=== PATIENT | male | born 1975 | race Caucasian/White ===

== ENCOUNTER 2025-04-09 18:04 | Emergency (ER) | payer OTHER, SELFPAY ==
[2025-04-09] VITALS (8 sets, daily range): BP systolic 133–144; BP diastolic 74–96; PULSE 91–100; RESP 18–103; TEMP 36.4–36.6; O2SAT 96–99
--- NOTE | ~2025-04-09 | XR_ITS ---
XR chest 2V Ordering provider: Jerald Cristobal III DO History: 50 years Male with . chest tightness . Comparison: None. FINDINGS: MEDIASTINUM: The cardiac silhouette is not enlarged. LUNGS: No infiltrates, effusions or pneumothorax. OTHER: No free air under the diaphragm. IMPRESSION: No acute cardiopulmonary pathology. Reviewed, dictated and finalized at location A.
--- NOTE | 2025-04-09 18:11 | ECG_ITS ---
Test Date: 2025-04-09 18:19:13 Measurements Intervals [place] Rate: 95 P: 65 FL: 156 QRS: 65 QRSD: 96 T: 46 QT: 342 QTc: 431 Interpretive Statements SINUS RHYTHM No previous ECG available for comparison Electronically Signed On 04-09-2025 18:35:40 CDT by Janiya Lentz
--- NOTE | 2025-04-09 18:24 | ED.SOB ---
HPI - SOB/Dyspnea General Chief Complaint: Shortness of Breath/Dyspnea Stated Complaint: I need some air Time Seen by Provider: 04/09/25 18:14 Source: patient Mode of arrival: ambulatory Limitations: no limitations History of Present Illness HPI Narrative: Patient is a 50 y/o male who presents to the ED with c/o shortness of breath. Patient is currently residing at [facility] for inpatient detox. History of methamphetamine use, IV drug use. He reports he has been feeling increasingly short of breath with chest tightness over the past 2-3 days. He states he typically uses a rescue inhaler, but has not had access to this since being at [facility]. States he has been asking for it over the past couple of days, but has not been given it. Became very upset today and walked out of the facility and to here. Denies significant cough, congestion, sore throat, rhinorrhea, fevers, pain or swelling in legs. Related Data Allergies Allergy/AdvReac Type Severity Reaction Status Date / Time No Known Allergies Allergy Verified 04/09/25 18:05 Review of Systems Review of Systems: All systems reviewed & are unremarkable except as noted in HPI. All systems reviewed & are unremarkable except as noted in HPI and below PMFSH Social History Social History (Updated 04/09/25 @ 22:52 by Nikole Mercado PA-C) Substance use: former Substance use type: IV drugs and methamphetamine Exam Narrative: GENERAL: Mildly anxious appearing, well-nourished, non-toxic, in no acute distress. HEAD: Normocephalic, atraumatic. RESPIRATORY: Airway patent, respirations nonlabored. Clear to auscultation bilaterally, no rales, rhonchi, wheezing. No significant focal lung sounds. CARDIOVASCULAR: Regular rate and rhythm without murmurs, rubs, or gallops. MUSCULOSKELETAL: Moves all extremities. No gross deformities. No peripheral edema. No calf tenderness. SKIN: Warm, dry, normal color. NEURO: A&O X3. Speech clear. Cranial nerves II-XII grossly intact. Steady gait. No ataxic movements. PSYCHIATRIC: Intermittently tearful, labile mood. Normal interaction. Course Vital Signs Vital signs: Vital Signs Temperature 97.9 F 04/09/25 18:11 Pulse Rate 100 04/09/25 18:11 Respiratory Rate 24 H 04/09/25 18:11 Blood Pressure 144/96 H 04/09/25 18:11 Pulse Oximetry 98 04/09/25 18:11 Oxygen Delivery Room Air 04/09/25 18:11 Temperature 97.6 F 04/09/25 22:22 Pulse Rate 95 04/09/25 22:22 Respiratory Rate 18 04/09/25 22:22 Blood Pressure 133/96 H 04/09/25 22:22 Pulse Oximetry 98 04/09/25 22:22 Oxygen Delivery Room Air 04/09/25 18:14 MDM - SOB/Dyspnea MDM Narrative Medical decision making narrative: Patient presented to ED with 2-3 day hx of sob, chest tightness. Had been residing at [facility] however patient reportedly became irate today with staff and caused a scene before walking out of the building. ED nurse contacted [facility] and was advised that patient is not to return to the facility. Patient was updated on this and voiced understanding w/o issue. Vital signs are stable upon arrival. Patient is mildly anxious appearing, in no acute distress. EKG without ischemic changes. Baseline troponin undetectable. Chest x-ray is clear. D-dimer is within normal limits. Basic laboratory studies are otherwise unremarkable. No leukocytosis. Patient is denying any infectious type symptoms to suggest viral etiology. HEART score =2 based on age/smoking hx. 3 hour troponin also undetectable. Patient reports feeling slightly improved after nebulizer treatment. Low suspicion for ACS at this time. Feel patient is safe for discharge home with close outpatient follow-up. Recommended he follow-up with primary care doctor for further evaluation. Given return precautions. Patient in agreement with plan. Discharged in stable condition. Vital signs stable at time of D/C. Patient reports he does have a home that he can return to. Will be calling someone for ride. Denies SI or HI. Medical Records Attestation: I reviewed the patient's medical records. Lab Data Attestation: I reviewed the patient's lab results. 04/09/25 18:22 04/09/25 18:22 Labs: Lab Results 04/09/25 04/09/25 Range/Units 18:22 21:22 WBC 7.4 (4.5-10.0) K/mm3 RBC 4.28 L (4.6-6.20) M/mm3 Hgb 12.5 L (14.0-18.0) g/dL Hct 39.1 L (42.0-52.0) % MCV 91.4 (80-100) fl MCH 29.2 (26-34) pg MCHC 32.0 (32-36) g/dl RDW 14.4 (11.5-14.5) % Plt Count 263 (150-375) k/mm3 MPV 9.2 (7.4-10.4) fl Immature Gran % (Auto) 0.4 (0-0.5) % Neut % (Auto) 48.7 (45.5-73.1) % Lymph % (Auto) 35.0 (18.3-44.2) % [place] % (Auto) 11.4 H (2.6-8.5) % Eos % (Auto) 3.5 (0-4.4) % Baso % (Auto) 1.0 (0.2-1.2) % Lymph # (Auto) 2.57 (0.9-3.2) K/mm3 [place] # (Auto) 0.8 H (0.1-0.6) K/mm3 Eos # (Auto) 0.3 (0-0.3) K/mm3 Baso # (Auto) 0.1 (0.0-0.1) K/mm3 Abs Immat Gran (auto) 0.03 (0.00-0.031) K/mm3 Absolute Neuts (auto) 3.6 (1.3-6.7) K/mm3 Absolute Nucleated RBC 0.000 (0.0-0.012) K/mm3 Nucleated RBC % 0.0 (0.0-0.2) % PT 11.8 (11.1-14.7) Seconds INR 0.8 APTT 23.8 (22.3-36.8) Seconds D-Dimer 0.42 (<0.48) ug/mL Sodium 136 L (137-145) mmol/L Potassium 4.2 (3.4-5.0) mmol/L Chloride 99 (98-107) mmol/L Carbon Dioxide 29 (22-30) mmol/L Anion Gap 8 (4-12) mmol/L BUN 16 (9-20) mg/dL Creatinine 0.85 (0.7-1.3) mg/dL Estim Creat Clear Calc Not Reportable Estimated GFR > 60 (59 - ) Glucose 115 H (65-110) mg/dL Calcium 9.0 (8.4-10.2) mg/dL Total Bilirubin 0.4 (0.2-1.3) mg/dL AST 41 (17-59) U/L ALT 60 H (6-50) U/L Alkaline Phosphatase 90 (38-126) U/L Troponin I < 0.012 < 0.012 (0.000-0.034) ng/mL Total Protein 7.0 (6.3-8.2) g/dL Albumin 4.2 (3.5-5.1) g/dL Lipase 127 (23-300) U/L Imaging Data Attestation: I personally reviewed and interpreted this imaging study as follows: Radiologist's impression: ITS Impressions Chest X-Ray 04/09/25 18:51 IMPRESSION: No acute cardiopulmonary pathology. ECG Data EKG #1: Attestation: I personally reviewed and interpreted this ECG as follows: ECG completion date: 04/09/25 ECG completion time: 18:19 EKG Interpretation: normal rate (95), sinus rhythm and non-specific ST changes Discharge Plan Discharge Clinical Impression: Atypical chest pain, Chest tightness Patient Disposition: Home Condition: Stable Instructions: Antibiotic Form, Chest Pain (ED), Shortness of Breath (ED) Additional Instructions: Your workup here was reassuring. Utilize inhaler as needed for further shortness of breath. Stay well hydrated. Follow-up with your primary care doctor for further evaluation. Return to an ED if you experience worsening or severe symptoms, difficulty breathing, worsening chest pain, unable to keep down food or drink, pain or swelling in your legs, coughing blood, persistent fevers, or any other symptoms of concern. Patient Language: Divehi Prescriptions: New albuterol sulfate 90 mcg/actuation HFA aerosol inhaler 2 puff inhalation QID PRN (Reason: shortness of breath or wheezing) Qty: 6.7 0RF Follow-up/Referrals: PHYSICIAN,PUPPET ENGINEER [Non-Staff] - Sukhi Boudreaux MD [Physician] - (PRIMARY CARE) Time of Disposition: 21:58 Quality HEART score for chest pain patients History: slightly suspicious ECG: normal Age: > 45 and < 65 years Risk factors: 1 or 2 risk factors Troponin: < or = to 1x normal limit Heart score: 2
[2025-04-09 18:30] LABS: Basophils Absolute Auto 0.1 K/mm3 (0.0-0.1); Eosinophils Absolute Auto 0.3 K/mm3 (0-0.3); Eosinophils Percent Auto 3.5 % (0-4.4); Hematocrit 39.1 % (42.0-52.0); Hemoglobin 12.5 g/dL (14.0-18.0); Immature Granulocyte Absolute 0.03 K/mm3 (0.00-0.031); Immature Granulocyte Percent A 0.4 % (0-0.5); Lymphocytes Absolute Auto 2.57 K/mm3 (0.9-3.2); Mean Corpuscular Hemoglobin 29.2 pg (26-34); Mean Corpuscular Volume 91.4 fl (80-100); Mean Platelet Volume 9.2 fl (7.4-10.4); Monocytes Absolute Auto 0.8 K/mm3 (0.1-0.6); Monocytes Percent Auto 11.4 % (2.6-8.5); Neutrophils Absolute Auto 3.6 K/mm3 (1.3-6.7); Neutrophils Percent Auto 48.7 % (45.5-73.1); Platelet Count Result 263 k/mm3 (150-375); Red Blood Count 4.28 M/mm3 (4.6-6.20); Red Cell Distribution Width 14.4 % (11.5-14.5); White Blood Count 7.4 K/mm3 (4.5-10.0)
--- NOTE | 2025-04-09 18:41 | PC.NURSE ---
Per [facility], the patient has been discharged from their facility. Patient is not allowed to return due to him yelling and disrespecting staff.
[2025-04-09 18:43] LABS: Alanine Aminotransferase 60 U/L (6-50); Albumin Level 4.2 g/dL (3.5-5.1); Alkaline Phosphatase 90 U/L (38-126); Anion Gap 8 mmol/L (4-12); Aspartate Amino Transferase 41 U/L (17-59); Bilirubin,Total 0.4 mg/dL (0.2-1.3); Blood Urea Nitrogen 16 mg/dL (9-20); Carbon Dioxide 29 mmol/L (22-30); Chloride 99 mmol/L (98-107); Estimated Glomerular Filt Rate > 60; Glucose 115 mg/dL (65-110); Lipase 127 U/L (23-300); Potassium 4.2 mmol/L (3.4-5.0); Sodium 136 mmol/L (137-145)
--- OUTSIDE RECORDS SUMMARY | 2025-04-09 18:49 | XMS_ITS | Clinical Summary ---
Author Organization [facility] Address [address] [place] [address] Care Team Providers Care General Pediatrician Name Role Phone Omer Roa MD Primary Care Provider [phone] Source Comments [facility],non-owned Affiliates and Associated Physician Practices is amultiple site organization consisting of ambulatory clinics and hospital sitesin [place], [place], [place]. This disclosure is being madepursuant to the Care Everywhere program and may not contain all information available regarding this patient. Last updated 18.[employer] [facility] Allergies No known active allergies Medications * This document contains information received from the source organization and may not represent a complete record from that organization. * Be aware that medications may not be up to date on this document. Alwaysverify current medications with the patient. amLODIPine (Norvasc) 5 MG tabletIndication s:Hypertension Take 1 (one) tablet by mouth once daily for 30 days Reasons: High Blood Pressure 30 tablet 5 Active escitalopram (Lexapro) 10 MG tabletIndication s:Major Depressive Disorder Take 1 (one) tablet by mouth once daily for 30 days Reasons: Major Depressive Disorder 30 tablet 5 Active traZODone (Desyrel) 50 MG tabletIndication s:Insomnia,Major Depressive Disorder Take 1 (one) tablet by mouth nightly as needed for Insomnia Reasons: Major Depressive Disorder, Trouble Sleeping 30 tablet 5 Active umeclidinium (Incruse Ellipta) 62.5 MCG/ACT inhalerIndicatio ns:Chronic Obstructive Pulmonary Disease Inhale 1 (one) puff by mouth once daily for 30 days Reasons: Chronic Obstructive Lung Disease 1 Each 5 Active Active Problems Problem Noted Date Diagnosed Date Unspecified mood (affective) disorder 01/04/2025 Tobacco use disorder 12/05/2024 Depression, unspecified depression type 12/04/19 25 Syncope and collapse 09/07/2024 Methamphetamine use disorder, severe 09/07/2024 Acute exacerbation of chronic obstructive pulmon gabby disease 07/07/2024 Generalized anxiety disorder 03/13/2024 Essential hypertension 03/13/2024 Mixed hyperlipidemia 03/13/2024 Allergic bronchitis 10/13/2023 Acute encephalopathy 08/30/2023 Closed fracture of left iliac wing 05/13/2020 Encounters * This document contains information received from the source organization and may not represent a complete record from that organization. Date Type Department Care Team Description 03/25/2025 Travel 02/27/2025 Travel 01/28/2025 2:05 PM EDUCATIONAL SPECIALIST - 01/28/2025 6:15 PM EDUCATIONAL SPECIALIST [place] [address] Christy Howell MD Near syncope; Hallucinations; Methamphetamine abuse Discharge Disposition: Home or Self Care 01/28/2025 Travel 01/27/2025 Travel from Last 3 Months Immunizations Immunization Administration Dates Next Due Zodio primary monovalent 12+ yr 0.3mL Pur ple cap 12/01/2021 INFLUENZA VACCINE, TRIV. ([place] UZONE; FLULAVAL; FLUARIX; AFLURIA TRIVALENT; 6MO+), 0.5 ML (IIV3) 12/06/2024 TDAP (7yrs+) 07/06/2010 Family History Medical History Relation Name Comments Cancer - Lung Mother Relation Name Status Comments Mother Social History Tobacco Use Types Packs/Day Years Used Date Smoking Tobacco: Every Day Cigarettes Smokeless Tobacco: Never Tobacco Cessation:Ready to Q uit: Not Asked; Counseling Given: Not Answered Alcohol Use Standard Drinks/Week Comments Yes 0 (1 standard drink = 0.6 oz pure alcohol) , relapsed 12/03/2024, only a few drinks a couple of times AUDIT-C Answer Date Recorded Q1: How often do you have a drink containing alc ohol? Monthly or less 03/25/2025 Q2: How many drinks containi ng alcohol do you have on a typical day when you are drinking? 1 or 2 03/25/2025 Q3: How often do you have si x or more drinks on one occasion? Never 03/25/2025 Overall Financial Resource Strain (CARDIA) Answe r Date Recorded How hard is it for you to pa y for the very basics like food, housing, medical care, and heating? Very hard 01/04/2025 PHQ-2 Answer Date Recorded Patient Health Questionnaire-2 Score 3 03/25/2025 [facility] - Occupational Stress Questionnaire Answer Date Recorded Do you feel stress - tense, restless, nervous, or anxious, or unable to sleep at night because your mind is troubled all the time - these days? Very much 01/04/2025 Hunger Vital Sign Answer Date Recorded Within the past 12 months, y ou worried that your food would run out before you got the money to buy more. Often true 01/04/20 25 Within the past 12 months, t he food you bought just didn't last and you didn't have money to get more. Often true 01/04/2025 PRAPARE - Transportation Answer Date Re corded In the past 12 months, has l ack of transportation kept you from medical appointments or from getting medications? Yes 06/2025 In the past 12 months, has l ack of transportation kept you from meetings, work, or from getting things needed for daily living? Yes 01/04/2025 Housing Stability Vital Sign Answer Alhaji e Recorded In the last 12 months, was t here a time when you were not able to pay the mortgage or rent on time? Yes 01/04/2025 In the past 12 months, how m any times have you moved where you were living? 1 01/04/2025 At any time in the past 12 m [facility], were you homeless or living in a [place] health care facility (including now)? Yes 01/04/2025 Sex and Gender Information Value Date Recorded Sex Assigned at Not on file Legal Sex Male 6:16 PM EDUCATIONAL SPECIALIST Gender Identity Not on file Sexual Orientation Not on file Last Filed Vital Signs Vital Sign Reading Time Taken Comments Blood Pressure 157/100 01/28/2025 6:13 PM EDUCATIONAL SPECIALIST Pulse 100 01/28/2025 6:13 PM EDUCATIONAL SPECIALIST Temperature 36.8 C (98.3 F) 01/28/2025 1:47 PM EDUCATIONAL SPECIALIST Respiratory Rate 17 01/28/2025 6:13 PM EDUCATIONAL SPECIALIST Oxygen Saturation 100% 01/28/2025 6:13 PM EDUCATIONAL SPECIALIST Inhaled Oxygen Concentration 21% 10/28/2024 7 :07 AM EDUCATIONAL SPECIALIST Weight 75.3 kg (166 lb) 01/28/2025 1:47 PM EDUCATIONAL SPECIALIST Height 180.3 cm (5' 11 ) 01/28/2025 1:47 PM EDUCATIONAL SPECIALIST Body Mass Index 23.15 01/28/2025 1:47 PM EDUCATIONAL SPECIALIST Plan of Treatment Health Maintenance Due Date Last Done Comments COLOGUARD (AGES 45-75) - COL ON CA SCREENING 1974 COLON MONITORING 1974 COLONOSCOPY - COLON CA SCREENING 1974 CT COLONOGRAPHY - COLON CA SCREENING 1974 Colorectal Cancer Screening 1974 FIT - COLON CA SCREENING 1974 FLEX SIG - COLON CA SCREENING 1974 LIPID TESTING 1974 HEPATITIS B VACCINE (1 of 3 - 19+ 3-dose series) 1993 PNEUMOCOCCAL VACCINE 50+ (1 of 2 - PCV) 1993 DTAP/TDAP/TD VACCINES (2 - T d or Tdap) 07/06/2020 07/06/2010 ZOSTER VACCINE (1 of 2) 2024 COVID-19 VACCINE (2 - 2023-2 5 season) 2024 12/01/2021 HEPATITIS C SCREENING Completed 12/16/2022 , 09/14/2019 HIV SCREENING Completed 05/27/2024, 09/14/2019 INFLUENZA VACCINE Completed 12/06/2024 DEPRESSION SCREENING Completed 01/28/2025, 12/16/2022 HIB VACCINE Aged Out No longer eligi ble based on patient's age to complete this topic HPV VACCINE Aged Out No longer eligi ble based on patient's age to complete this topic MENINGOCOCCAL (Group B) VACCINE SHARED DECISION-MAKING Aged Out No longer eligible based on patient's age to complete this topic MENINGOCOCCAL GROUPS A/C/Y/W VACCINE Aged Out No longer eligible b ased on patient's age to complete this topic Procedures Procedure Name Priority Date/Time Associated Diagnosis Comments CARDIAC EKG ORDER 01/30/2025 2:[address] HEAD WO CONTRAST STAT 01/28/2025 2 :32 PM EDUCATIONAL SPECIALIST Near syncope DRUG ABUSE URINE SCREEN 10 STAT 01/28/2025 2:17 PM EDUCATIONAL SPECIALIST URINALYSIS REFLEX TO MICROSCOPIC NO CULTURE STAT 01/28/2025 2:17 PM EDUCATIONAL SPECIALIST CK BLOOD STAT 01/28/2025 2:14 PM EDUCATIONAL SPECIALIST ALCOHOL ETHYL BLOOD STAT 01/28/2025 2 :14 PM EDUCATIONAL SPECIALIST TROPONIN-I HIGH SENSITIVE STAT 01/28/2025 2:14 PM EDUCATIONAL SPECIALIST PT-INR STAT 01/28/2025 2:14 PM EDUCATIONAL SPECIALIST MAGNESIUM BLOOD STAT 01/28/2025 2:14 PM EDUCATIONAL SPECIALIST COMPREHENSIVE METABOLIC PANEL STAT 01/28/2025 2:14 PM EDUCATIONAL SPECIALIST CBC W AUTO DIFFERENTIAL STAT 01/28/2025 2:14 PM EDUCATIONAL SPECIALIST TSH REFLEX FREE T4 STAT 01/28/2025 2: 14 PM EDUCATIONAL SPECIALIST XR CHEST 1VW PORTABLE STAT 01/28/2025 2:13 PM EDUCATIONAL SPECIALIST Near syncope EKG 12-LEAD STAT 01/28/2025 2:08 PM EDUCATIONAL SPECIALIST Near syncope HIV-1 HIV-2 ANTIBODY + HIV P24 AG PANEL STAT 05/27/2024 6:26 PM CDT from Last 3 Months or Most Recently Relevant to Health Maintenance Results * CARDIAC EKG ORDER (01/30/2025 2:21 PM EDUCATIONAL SPECIALIST) Narrative 01/30/2025 2:21 PM EDUCATIONAL SPECIALIST Ordered by an unspecified provider. us Scanned Document CARDIAC SERVICES ORDERABLES Fin al Result * CT HEAD WO CONTRAST (01/28/2025 2:32 PM EDUCATIONAL SPECIALIST) Anatomical Region Laterality Modality Head Computed Tomogra phy 01/28/2025 2:38 PM EDUCATIONAL SPECIALIST Impressions 01/28/2025 2:39 PM EDUCATIONAL SPECIALIST Impression: No acute intracranial process. > Interpreting Provider: Mark Carvajal MD on 01/28/2025 2:39 PM Narrative 01/28/2025 2:[address] Brain Without Contrast Indication: Head pain. Head injury. Comparison: 09/15/2024. Technique: Axial images of the brain were obtained without contrast and reconstructions performed. One or more of the following CT dose reduction techniques were utilized: *Automated exposure control (AEC) *Adjustment of mA and/or kV according to patient size -Use of iterative reconstruction technique -CT scan done according to ALARA or ALARA/IMAGE GENTLY Findings: There is no evidence of acute intracranial hemorrhage or recent cortical infarction. There is no mass or midline shift. Ventricular size is within normal limits. There are no extra-axial fluid collections. The bony calvarium is intact. The paranasal sinuses and mastoid air cells are clear. Procedure Note Mark Carvajal MD - 01/28/2025 CT Brain Without Contrast Indication: Head pain. Head injury. Comparison: 09/15/2024. Technique: Axial images of the brain were obtained without contrast and reconstructions performed. One or more of the following CT dose reduction techniques were utilized: *Automated exposure control (AEC) *Adjustment of mA and/or kV according to patient size -Use of iterative reconstruction technique -CT scan done according to ALARA or ALARA/IMAGE GENTLY Findings: There is no evidence of acute intracranial hemorrhage orrecent cortical infarction. There is no mass or midline shift. Ventricular sizeis within normal limits. There are no extra-axial fluid collections. Thebony calvarium is intact. The paranasal sinuses and mastoid air cells areclear. Impression: No acute intracranial process. > Interpreting Provider: Mark Carvajal MD on 01/28/2025 2:39 PM Christy Howell MD CT ORDERABLES Final Result * (ABNORMAL) DRUG ABUSE URINE SCREEN 10 (01/28/2025 2:17 PM EDUCATIONAL SPECIALIST) Amphetamines Screen Urine Negative Negative 01/28/2025 2:49 PM [facility] Barbiturates Screen Urine Negative Negative 01/28/2025 2:49 PM [facility] Benzodiazepines Screen Urine Negative Negative 01/28/2025 2:49 PM [facility] Cannabinoids Screen Urine Negative Negative 01/28/2025 2:49 PM [facility] Cocaine Screen Urine Negative Negative 01/28/2025 2:49 PM [facility] Methadone Screen Urine Negative Negative 01/28/2025 2:49 PM [facility] Opiate Screen Urine Negative Negative 01/28/2025 2:49 PM [facility] Phencyclidine Screen Urine Negative Negative 01/28/2025 2:49 PM [facility] Tricyclics Screen Urine Negative Negative 01/28/2025 2:49 PM [facility] Methamphetamine Screen Urine Positive(A) Negative 01/28/2025 2:49 PM [facility] Buprenorphine Screen Urine Negative Negative 01/28/2025 2:49 PM [facility] Oxycodone Screen Urine Negative Negative 01/28/2025 2:49 PM [facility] Urine URINE / Unknown Collection / Unknown 01/28/2025 2:17 PM [facility] 01/28/2025 2:20 PM [facility] - 01/28/2025 2:49 PM [facility] This is a presumptive/unconfirmed test for medical treatment purposes only. Clinical consideration and professional judgment should be applied when using presumptive results. If confirmatory testing, such as gas chromatography-mass spectrometry (GC/MS), of any positive results of this test is required, please notify the laboratory within 7 days of collection. This test is intended only for monitoring or management of patients. It is not intended for use in job-related and/or legal-related purposes. The cutoff value for each analyte is: Barbiturates.....200 ng/mL Benzodiazepines......150 ng/mL Cocaine..........150 ng/mL Opiates..............100 ng/mL Phencyclidine.....25 ng/mL Tricyclics...........300 ng/mL Cannabinoid.......50 ng/mL Amphetamines.........500 ng/mL Methadone........200 ng/mL Methamphetamines.....500 ng/mL Buprenorphine.....10 ng/mL Oxycodone............100 ng/mL us Christy Howell MD LAB - URINE CHEMISTRY ORDERA BLES Final Result [facility] [address] * URINALYSIS REFLEX TO MICROSCOPIC NO CULTURE (01/28/2025 2:17 PM EDUCATIONAL SPECIALIST) Color UA Yellow Straw, Yellow, Dark Yellow 01/28/2025 2:40 PM [facility] Clarity UA Clear Clear 01/28/2025 2:40 PM [facility] Glucose UA Negative Negative 01/28/2025 2:40 PM [facility] Bilirubin UA Negative Negative 01/28/2025 2:40 PM [facility] Ketone UA Negative Negative 01/28/2025 2:40 PM [facility] Specific [place] UA 1.026 1.005 - 1.030 01/28/2025 2:40 PM [facility] Blood UA Negative Negative 01/28/2025 2:40 PM [facility] pH UA 5.0 5.0 - 8.0 pH 01/28/2025 2:40 PM [facility] Protein UA Negative Negative 01/28/2025 2:40 PM [facility] Urobilinogen UA Negative Negative, >8.0 mg/dL 01/28/2025 2:40 PM [facility] Nitrite UA Negative Negative 01/28/2025 2:40 PM [facility] Leukocyte UA Negative Negative 01/28/2025 2:40 PM [facility] RBC UA 0-2 0 - 5 # /hpf 01/28/2025 2:40 PM [facility] WBC UA 0-5 None Seen, 0-5 # /hpf 01/28/2025 2:40 PM [facility] Bacteria UA None Seen None Seen 01/28/2025 2:40 PM [facility] Squamous Epithelial Cells None Seen None Seen, 0-2, 3-5 /hpf 01/28/2025 2:40 PM [facility] Mucus UA 1+ /LPF 01/28/2025 2:40 PM EDUCATIONAL SPECIALIST [facility] Urine URINE SPECIMEN OBTAINED BY CLEAN CATCH PROCEDURE / Unknown Collection / Unknown 01/28/2025 2:17 PM EDUCATIONAL SPECIALIST 01/28/2025 2:20 PM EDUCATIONAL SPECIALIST Narrative [facility] - 01/28/2025 2:40 PM EDUCATIONAL SPECIALIST us Christy Howell MD LAB - URINALYSIS ORDERABLES Final Result Performing Organization Address [facility] [address]/ZIP Co de Phone Number [facility] [address] [place] [address] * TROPONIN-I HIGH SENSITIVE (01/28/2025 2:14 PM EDUCATIONAL SPECIALIST) [facility] Troponin I High Sensitive <3 <=35 ng/L 01/28/2025 2:48 PM EDUCATIONAL SPECIALIST [facility] Blood BLOOD SPECIMEN / Unknown Venipuncture / Unknown 01/28/2025 2:14 PM EDUCATIONAL SPECIALIST 01/28/2025 2:20 PM EDUCATIONAL SPECIALIST us Christy Howell MD LAB - CHEMISTRY ORDERABLES F inal Result Performing Organization Address [facility] de Phone Number [facility] [address] [place] [address] * TSH REFLEX FREE T4 (01/28/2025 2:14 PM EDUCATIONAL SPECIALIST) [facility] TSH 1.3693 0.35 - 4.94 uIU/mL 01/28/2025 3:02 PM EDUCATIONAL SPECIALIST [facility] Comment:TSH Normal, Reflex F ree T4 Not Performed. Blood BLOOD SPECIMEN / Unknown Venipuncture / Unknown 01/28/2025 2:14 PM EDUCATIONAL SPECIALIST 01/28/2025 2:20 PM EDUCATIONAL SPECIALIST us Christy Howell MD LAB - CHEMISTRY ORDERABLES F inal Result Performing Organization Address [facility] [address]/[facility] Co de Phone Number [facility] [address] [place] [address] * (ABNORMAL) PT-INR (01/28/2025 2:14 PM EDUCATIONAL SPECIALIST) [facility] PT 12.5 11.3 - 14.8 sec 01/28/2025 2:32 PM [facility] INR 0.94(L) 2 - 3 01/28/2025 2:32 PM [facility] Blood BLOOD SPECIMEN / Unknown Venipuncture / Unknown 01/28/2025 2:14 PM EDUCATIONAL SPECIALIST 01/28/2025 2:20 PM EDUCATIONAL SPECIALIST Narrative [facility] - 01/28/2025 2:32 PM [facility] Recommended therapeutic INR ranges for Oral Anticoagulant Therapy: 2.0-3.0 For prevention of Thrombosis or Embolism and treatment of Venous Thrombosis. 2.5- 3.5 for prevention of Recurrent Embolism or treatment of patients with Mechanical Prosthetic Heart Valves. us Christy Howell MD LAB - COAGULATION ORDERABLES Final Result Performing Organization Address City/State/[facility] Co de Phone Number [facility] [address] * CBC W AUTO DIFFERENTIAL (01/28/2025 2:14 PM [facility]) [facility] WBC 7.9 4.0 - 10.7 x10E9/L 01/28/2025 2:23 PM [facility] RBC Count 4.89 4.30 - 5.80 x10E12/L 01/28/2025 2:23 PM [facility] Hemoglobin 14.2 13.3 - 17.5 g/dL 01/28/2025 2:23 PM [facility] Hematocrit 42.8 38.7 - 51.1 % 01/28/2025 2:23 PM [facility] MCV 87.5 80.0 - 98.0 fL 01/28/2025 2:23 PM [facility] MCH 29.0 26.7 - 33.6 pg 01/28/2025 2:23 PM [facility] MCHC 33.2 31.7 - 36.3 g/dL 01/28/2025 2:23 PM [facility] RDW-CV 13.4 11.3 - 14.8 % 01/28/2025 2:23 PM [facility] Platelet Count 325 150 - 420 x10E9/L 01/28/2025 2:23 PM [facility] MPV 8.7 7.8 - 11.4 fL 01/28/2025 2:23 PM [facility] Neutrophil % 66.7 41.0 - 74.0 % 01/28/2025 2:23 PM [facility] Lymphocyte % 25.0 17.0 - 47.0 % 01/28/2025 2:23 PM [facility] Monocyte % 6.1 3.0 - 11.0 % 01/28/2025 2:23 PM [facility] Eosinophil % 1.0 0.0 - 7.0 % 01/28/2025 2:23 PM [facility] Basophil % 0.9 0.0 - 1.6 % 01/28/2025 2:23 PM [facility] Immature Granulocytes % 0.3 0.0 - 1.0 % 01/28/2025 2:23 PM [facility] Neutrophil Absolute 5.27 1.60 - 7.50 x10E9/L 01/28/2025 2:23 PM [facility] Lymphocyte Absolute 1.97 1.00 - 4.40 x10E9/L 01/28/2025 2:23 PM [facility] Monocyte Absolute 0.48 0.15 - 1.00 x10E9/L 01/28/2025 2:23 PM [facility] Eosinophil Absolute 0.08 0.00 - 0.60 x10E9/L 01/28/2025 2:23 PM [facility] Basophil Absolute 0.07 0.00 - 0.13 x10E9/L 01/28/2025 2:23 PM [facility] Blood BLOOD SPECIMEN / Unknown Venipuncture / Unknown 01/28/2025 2:14 PM [facility] 01/28/2025 2:20 PM [facility] us Christy Howell MD LAB - HEMATOLOGY ORDERABLES Final Result [facility] [address] * (ABNORMAL) COMPREHENSIVE METABOLIC PANEL (01/28/2025 2:14 PM [facility]) [facility] Glucose 118 70 - 125 mg/dL 01/28/2025 2:41 PM [facility] Sodium 140 136 - 145 mmol/L 01/28/2025 2:41 PM [facility] Potassium 3.8 3.4 - 5.1 mmol/L 01/28/2025 2:41 PM [facility] Chloride 105 98 - 107 mmol/L 01/28/2025 2:41 PM [facility] CO2 25 22 - 29 mmol/L 01/28/2025 2:41 PM [facility] Calcium 9.69 8.4 - 10.2 mg/dL 01/28/2025 2:41 PM [facility] Anion Gap 10 6 - 16 mmol/L 01/28/2025 2:41 PM [facility] BUN 20.8 8.4 - 25.7 mg/dL 01/28/2025 2:41 PM [facility] Creatinine 0.81 0.72 - 1.25 mg/dL 01/28/2025 2:41 PM [facility] Alkaline Phosphatase 67 40 - 150 U/L 01/28/2025 2:41 PM [facility] ALT 16 <=55 U/L 01/28/2025 2:41 PM [facility] AST 16 5 - 34 U/L 01/28/2025 2:41 PM [facility] Protein Total 7.8 6.4 - 8.3 gm/dL 01/28/2025 2:41 PM [facility] Albumin 3.7 3.4 - 4.8 gm/dL 01/28/2025 2:41 PM [facility] Globulin Total 4.1(H) 2.6 - 4.0 gm/dL 01/28/2025 2:41 PM [facility] Albumin/Globulin Ratio 0.9 0.9 - 1.6 01/28/2025 2:41 PM [facility] Bilirubin Total 0.3 0.2 - 1.2 mg/dL 01/28/2025 2:41 PM [facility] eGFR >90 >90 mL/min/1.7 3m2 01/28/2025 2:41 PM [facility] Comment:The GFR result was c alculated using the updated CKD-EPI Creatinine Equation (2020). Blood BLOOD SPECIMEN / Unknown Venipuncture / Unknown 01/28/2025 2:14 PM EDUCATIONAL SPECIALIST 01/28/2025 2:20 PM [facility] us Christy Howell MD LAB - CHEMISTRY ORDERABLES F inal Result [facility] [address] * MAGNESIUM BLOOD (01/28/2025 2:14 PM EDUCATIONAL SPECIALIST) Magnesium 2.0 1.6 - 2.6 mg/dL 01/28/2025 2:41 PM EDUCATIONAL SPECIALIST [facility] Blood BLOOD SPECIMEN / Unknown Venipuncture / Unknown 01/28/2025 2:14 PM EDUCATIONAL SPECIALIST 01/28/2025 2:20 PM EDUCATIONAL SPECIALIST Christy Howell MD LAB - CHEMISTRY ORDERABLES F inal Result Performing Organization Address City/[facility] [address]/ZIP Co de Phone Number [facility] [address] [place] [address] * CK BLOOD (01/28/2025 2:14 PM EDUCATIONAL SPECIALIST) CK 60 30 - 200 U/L 01/28/2025 3:17 PM EDUCATIONAL SPECIALIST [facility] Blood BLOOD SPECIMEN / Unknown Venipuncture / Unknown 01/28/2025 2:14 PM EDUCATIONAL SPECIALIST 01/28/2025 2:20 PM EDUCATIONAL SPECIALIST Christy Howell MD LAB - CHEMISTRY ORDERABLES F inal Result Performing Organization Address [facility] [address]/[facility] Co de Phone Number [facility] [address] [place] [address] * ALCOHOL ETHYL BLOOD (01/28/2025 2:14 PM EDUCATIONAL SPECIALIST) Ethanol <10.0 <10 mg/dL 01/28/2025 2:4 2 PM EDUCATIONAL SPECIALIST [facility] Blood BLOOD SPECIMEN / Unknown Venipuncture / Unknown 01/28/2025 2:14 PM EDUCATIONAL SPECIALIST 01/28/2025 2:20 PM EDUCATIONAL SPECIALIST Narrative [facility] - 01/28/2025 2:42 PM EDUCATIONAL SPECIALIST For Medical Use Only us Christy Howell MD LAB - CHEMISTRY ORDERABLES F inal Result Performing Organization Address City/[facility] [address]/ZIP Co de Phone Number [facility] [address] [place] [address] * XR CHEST 1VW PORTABLE (01/28/2025 2:13 PM EDUCATIONAL SPECIALIST) Anatomical Region Laterality Modality Chest Computed Radiogr aphy 01/28/2025 2:18 PM EDUCATIONAL SPECIALIST Narrative 01/28/2025 2:19 PM EDUCATIONAL SPECIALIST Portable AP Chest x-ray INDICATION: R55: Near syncope COMPARISON: 10/28/2024 FINDINGS: There is no focal infiltrate or consolidation. Heart size is normal. No evidence of pneumothorax or pleural effusion. A mass is not detected. > Interpreting Provider: Rayshawn Means JR, MD on 01/28/2025 2:19 PM Procedure Note Rayshawn Means MD - 01/28/2025 Portable AP Chest x-ray INDICATION: R55: Near syncope COMPARISON: 10/28/2024 FINDINGS: There is no focal infiltrate or consolidation. Heart size is normal. No evidence of pneumothorax or pleural effusion. A mass is not detected. > Interpreting Provider: Rayshawn Means JR, MD on 01/28/2025 2:19 PM Christy Howell MD DIAGNOSTIC IMAGING ORDERABLE S Final Result * EKG 12-LEAD (01/28/2025 2:08 PM EDUCATIONAL SPECIALIST) Ventricular Rate 93 BPM [facility] M[facility] Atrial Rate 93 BPM [facility] P-R Interval 148 ms [facility] QRS Duration ms 96 ms [facility] Q-T Interval ms 348 ms [facility] QTC Calculation (Bezet) 432 ms [facility] MUSE Calculated P [place] 67 degrees [facility] MUSE Calculated R [place] 82 degrees [facility] MUSE Calculated T [place] 59 degrees [facility] MUSE Interpretation EKG NORMAL SINUS RHYTHM CANNOT RULE OUT ANTERIOR INFARCT , AGE UNDETERMINED ABNORMAL ECG WHEN COMPARED WITH ECG OF 08-SEP-2024 20:29, NO SIGNIFICANT CHANGE WAS FOUND Confirmed by AMRITA JULES, IRVING ([id number]), publication editor NAHUM SURESH ([id number]) on 01/29/2025 9:40:40 AM [facility] MUSE 01/28/2025 2:08 PM EDUCATIONAL SPECIALIST 01/29/2025 9:40 AM EDUCATIONAL SPECIALIST Christy Howell MD ECG ORDERABLES Edited Resul t - Final [facility] * HIV-1 HIV-2 ANTIBODY + HIV P24 AG PANEL (05/27/2024 6:26 PM CDT) HIV1/2 Ab + P24 Ag NON-REACTI VE/NEGATIV E NON-REACTI VE/NEGATIV E 05/27/2024 7:14 PM CDT [facility] Blood BLOOD SPECIMEN / Unknown Venipuncture / Unknown 05/27/2024 6:26 PM CDT 05/27/2024 6:39 PM CDT [facility] - CHEMISTRY ORDERABLES Fin al Result [facility] [address] from Last 3 Months or Most Recently Relevant to Health Maintenance Insurance [facility] [place] [place] [facility] [address] [address] MEDICA[place] [address] [facility] [id number]|2025-04-09 18:49:00|2025-04-09 18:49:00|XMS_ITS|RONDA WYMAN|External Medical Summaries|[id number]|" Data Portability Created on: April 09, 2025 Mark Link .[id number] : 1975 Sex: Male Author Organization [facility] Address [address] [place] [address] Assessment No assessment recorded. Plan of Treatment Reminders Order Date Submit Date Provider Last Modified By Organization Details Last Modified Time Details Appointments None recorded. Lab None recorded. Referral None recorded. Procedures None recorded. Surgeries None recorded. Imaging None recorded. Medication Orders Spiriva with HandiHaler 18 mcg and inhalation capsules 2023 024 [email or web address] [facility] [address], [facility] [place], [address], 4 11:25:09 prednisone 50 mg tablet 2023 024 [facility] [address], [facility] [place], [address], 4 16:04:09 Patient TargetsNo targets recorded. Patient Instructions Encounter Date Encounter Id Patient Instructions Last Modified By Organization Details Last Modified Time 07/07/2024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
--- OUTSIDE RECORDS SUMMARY | 2025-04-09 18:49 | XMS_ITS ---
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 Name Role Phone Fallon Robles Primary Care Provider [phone] Tracy Barksdale Medications Medication SIG (Take, Route, Frequency, Duration) Notes Start Date End Date Status amLODIPine Besylate 5 MG 1 tablet Orally Once a day for 30 days Active Social History Sex Assigned At : Social History Observation Description Sex Assigned At Male Problems Problem Type SNOMED Code ICD Code Onset Dates Problem Status W/U Status Risk Notes Problem Hypertension (49389078) Hypertension (I10) Active confirmed Encounters Encounter Location Date Provider Diagnosis [facility] [address] [place] [address] 04/08/2025 Tracy Barksdale Hypertension I10 Assessments Encounter Date Diagnosis (ICD Code) Assessment Notes Treatment Notes Treatment Clinical Notes Section Notes 04/08/2025 Hypertension (ICD-10 - I10) Plan Of Treatment Medication Medication Name Sig Start Date Stop Date Notes amLODIPine Besylate 5 MG 1 tablet Orally Once a day for 30 days Next Appt Details Provider Name:Tracy guido, 04/16/2025 08:00:00 AM, [address] [place], [address], Progress Notes * Mark AMADOR ADOB: 4 (50 yo M)Acc No.[id number]:04/08/2025 UNLOCKED PROGRESS NOTE Patient: Jaqui RENEEFrederickMark :1975 A ge:50 Y S ex:Male Address:[address] [place] [place] [address], [address] * Refills Refill amLODIPine Besylate Tablet, 5 MG, Orally, 30, 1 tablet, Once a day, 30 days, Refills=0 Subjective: * Chief Complaints: * * Medical History: * Surgical History: * Hospitalization/Major Diagno stic Procedure: * Medications: Objective: * Vitals: * Physical Examination: Assessment: * Assessment: 1. H ypertension - I10 (Primary) Plan: * Treatment: * Procedure Codes: * * Date:
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
--- OUTSIDE RECORDS SUMMARY | 2025-04-09 18:50 | XMS_ITS | Clinical Summary ---
Author Organization [facility] Address [address] [place] [address] Phone Care Team Providers Care Mortgage Loan Coordinator Name Role Phone Omer Roa MD Primary Care Provider [phone] Allergies No known active allergies Medications ketorolac (TORADOL) 10 MG Tablet Take 1 Tablet by mouth every 4 hours as needed for Mild or more severe pain or Moderate or more severe pain (Take as needed for back pain.) for up to 15 doses. 15 Tablet Active Additional Information Patient not taking.Reported on 03/29/2025 cyclobenzaprine (FLEXERIL) 10 MG Tablet Take 1 Tablet by mouth 3 times daily as needed for Muscle spasms for up to 15 doses. 15 Tablet Active Additional Information Patient not taking.Reported on 03/29/2025 amLODIPine (NORVASC) 5 MG Tablet Take 1 Tablet by mouth daily. Active Active Problems Problem Noted Date Diagnosed Date Acute exacerbation of chronic obstructive pulmon gabby disease 07/07/2024 Cigarette smoker 03/13/2024 Essential hypertension 03/13/2024 Generalized anxiety disorder 03/13/2024 Mixed hyperlipidemia 03/13/2024 History of drug abuse 02/21/2024 Allergic bronchitis 10/13/2023 Nicotine dependence 10/13/2023 Encounters Date Type Department Care Team Description 03/29/2025 6:09 PM CDT - 03/29/2025 7:59 PM CDT Emergency [facility] Emergency Dept. Services [address] [place] [address] Heaven Cameron MD Methamphetamine abuse Discharge Disposition: Discharged to home or Selfcare 03/29/2025 Travel 02/18/2025 6:54 PM CDT - 02/18/2025 10:28 PM CDT Emergency [facility] Emergency Dept. Services [address] [place] [address] Jose Tabares DO Sinusitis Discharge Disposition: Discharged to home or Selfcare 02/18/2025 Travel 01/27/2025 1:54 PM CRIME LAB TECHNICIAN - 01/27/2025 3:28 PM CRIME LAB TECHNICIAN Emergency [facility] Emergency Dept. Services [address] [place] [address] Anais Steen MD Hallucination Discharge Disposition: Discharged to home or Selfcare 01/27/2025 Travel from Last 3 Months Social History Tobacco Use Types Packs/Day Years Used Date Smoking Tobacco: Every Day Cigarettes Smokeless Tobacco: Never Tobacco Cessation:Ready to Q uit: Not Asked; Counseling Given: Not Answered Alcohol Use Standard Drinks/Week Comments Not Currently 0 (1 standard drink = 0.6 oz pur e alcohol) Sexually Active Control Partners Comments Not Currently Sex and Gender Information Value Date Recorded Sex Assigned at Male 01/28/2025 10:38 AM CRIME LAB TECHNICIAN Legal Sex Male 1:50 PM CDT Gender Identity Male 01/28/2025 10:38 AM CRIME LAB TECHNICIAN Sexual Orientation Not on file Last Filed Vital Signs Vital Sign Reading Time Taken Comments Blood Pressure 128/90 03/29/2025 7:57 PM CDT Pulse 89 03/29/2025 7:57 PM CDT Temperature 37 C (98.6 F) 03/29/2025 6:17 PM CDT Respiratory Rate 16 03/29/2025 7:57 PM CDT Oxygen Saturation 99% 03/29/2025 7:57 PM CDT Inhaled Oxygen Concentration - - Weight 75.3 kg (166 lb) 03/29/2025 6:17 PM CDT Height 180.3 cm (5' 11 ) 03/29/2025 6:17 PM CDT Body Mass Index 23.15 03/29/2025 6:17 PM CDT Plan of Treatment Health Maintenance Due Date Last Done Comments Hepatitis C Virus (HCV) Screening 1974 Hepatitis B Immunization (1 of 3 - 19+ 3-dose series) 1993 Pneumococcal Immunization (5 0+ years) (1 of 2 - PCV) 1993 Colonoscopy 2019 Colorectal Cancer Screening 2019 Cologuard 2024 Immunochemical Fecal Occult Blood 2024 Zoster Immunization (1 of 2) 2024 SARS-COV-2 Immunization (2 - season) 2024 12/01/2021 Respiratory Syncytial Virus (RSV) Immunization (Adult) (1 - 1-dose 75+ series) 2049 TdaP Immunization Completed 07/06/2010 Influenza Immunization Completed 12/06/2024 Human Papillomavirus (HPV) Immunization Aged Out No longer eligible b ased on patient's age to complete this topic Meningococcal Immunization (ACWY) Aged Out No longer eligible based on patient's age to complete this topic Rotavirus Immunization Aged Out No lo nger eligible based on patient's age to complete this topic Procedures Procedure Name Priority Date/Time Associated Diagnosis Comments XR CHEST SINGLE VIEW PORTABLE STAT 03/29/2025 7:09 PM CDT XR HIP 2 VIEWS UNILATERAL LEFT STAT 02/18/2025 8:[address] PELVIS FOR BONE DETAIL WO/ CONTRAST Stat with Interpretation 02/18/2025 7:[address] CERVICAL SPINE WO/ CONTRAST Stat with Interpretation 02/18/2025 7:[address] LUMBAR SPINE WO CONTRAST Stat with Interpretation 02/18/2025 7:[address] HEAD OR BRAIN WO CONTRAST Stat with Interpretation 02/18/2025 7:40 PM CDT RED TOP TUBE STAT 01/27/2025 2:47 PM CRIME LAB TECHNICIAN BLUE TOP TUBE STAT 01/27/2025 2:47 PM CRIME LAB TECHNICIAN CBC WITH AUTO DIFFERENTIAL STAT 01/27/2025 2:47 PM CRIME LAB TECHNICIAN EXTRA TUBES STAT 01/27/2025 2:47 PM CRIME LAB TECHNICIAN MAGNESIUM (MG) STAT 01/27/2025 2:47 PM CRIME LAB TECHNICIAN CMP (COMPREHENSIVE METABOLIC PANEL) STAT 01/27/2025 2:47 PM CRIME LAB TECHNICIAN COMPLETE BLOOD COUNT (CBC) WITH DIFF STAT 01/27/2025 2:47 PM CRIME LAB TECHNICIAN URINALYSIS REFLEX IF INDICATED BY ABNORMAL RESULTS STAT 01/27/2025 2:33 PM CRIME LAB TECHNICIAN URINE DRUG SCREEN STAT 01/27/2025 2:3 3 PM CRIME LAB TECHNICIAN from Last 3 Months Results * XR CHEST SINGLE VIEW PORTABLE (03/29/2025 7:09 PM CDT) Anatomical Region Laterality Modality Chest N/A Computed Radiogr aphy 03/29/2025 7:42 PM CDT Narrative 03/29/2025 7:42 PM CDT EXAM DESCRIPTION: XR CHEST SINGLE VIEW PORTABLE REASON FOR STUDY: Patient reports congestion x2 days that worsens. Denies cough. States he often has to clear his throat and produces phlegm. States phlegm is clear. Duration: 2 days. TECHNIQUE: 1 radiographic view(s) of the chest. COMPARISON: 07/10/2024 FINDINGS: LUNGS: No focal opacity, pleural effusion, or pneumothorax. HEART/MEDIASTINUM: Cardiac silhouette normal in size. Mediastinal and hilar contours appear normal. LINES/TUBES: None. BONES: No acute osseous abnormality. IMPRESSION: No acute cardiopulmonary abnormality. THIS IS AN ELECTRONICALLY VERIFIED FINAL REPORT 03/29/2025 7:42 PM - Electronically signed by Cody Tabares M.D. KT: RONALD Report ID: [id number] Reading Location: [id number] Procedure Note Cody Tabares MD - 03/29/2025 EXAM DESCRIPTION: XR CHEST SINGLE VIEW PORTABLE REASON FOR STUDY: Patient reports congestion x2 days that worsens. Denies cough. States he often has to clear his throat and produces phlegm. States phlegm is clear. Duration: 2 days. TECHNIQUE: 1 radiographic view(s) of the chest. COMPARISON: 07/10/2024 FINDINGS: LUNGS: No focal opacity, pleural effusion, or pneumothorax. HEART/MEDIASTINUM: Cardiac silhouette normal in size. Mediastinal and hilar contours appear normal. LINES/TUBES: None. BONES: No acute osseous abnormality. IMPRESSION: No acute cardiopulmonary abnormality. THIS IS AN ELECTRONICALLY VERIFIED FINAL REPORT 03/29/2025 7:42 PM - Electronically signed by Cody Tabares M.D. KT: RONALD Report ID: [id number] Reading Location: [id number] us Heaven Cameron MD IMG DIAGNOSTIC ORDERABLES Carmela l Result * XR HIP 2 VIEWS UNILATERAL LEFT (02/18/2025 8:03 PM CDT) Anatomical Region Laterality Modality LOWER EXTREMITY, hip Left Computed Ra diography 02/18/2025 8:28 PM CDT Narrative 02/18/2025 8:28 PM CDT EXAM DESCRIPTION: XR HIP 2 VIEWS UNILATERAL LEFT REASON FOR STUDY: Pt presents to ER by EMS with c/o lower back pain. Pt reports pain started today after shoveling gravel all morning. Pt rates pain 10/10. No OTC pain medication taken Denies numbness or tingling to lower ext. Pt also c/o ALVARES. Duration: Today TECHNIQUE: 3 radiographic view(s) of the pelvis and left hip . COMPARISON: CT pelvis 02/18/2025 at 7:52 p.m. FINDINGS: Chronic irregularity and dystrophic calcification of the left anterior iliac crest is noted. No fracture or dislocation is identified. Soft tissues appear unremarkable. IMPRESSION: No acute process is seen THIS IS AN ELECTRONICALLY VERIFIED FINAL REPORT 02/18/2025 8:28 PM - Electronically signed by Cody Natarajan M.D. KH: JOY Report ID: [id number] Reading Location: [id number] Procedure Note Cody Natarajan MD - 02/18/2025 EXAM DESCRIPTION: XR HIP 2 VIEWS UNILATERAL LEFT REASON FOR STUDY: Pt presents to ER by EMS with c/o lower back pain. Pt reports pain started today after shoveling gravel all morning. Pt rates pain 10/10. No OTC pain medication taken Denies numbness or tingling to lower ext. Pt also c/o ALVARES. Duration: Today TECHNIQUE: 3 radiographic view(s) of the pelvis and left hip . COMPARISON: CT pelvis 02/18/2025 at 7:52 p.m. FINDINGS: Chronic irregularity and dystrophic calcification of the left anterior iliac crest is noted. No fracture or dislocation is identified. Soft tissues appear unremarkable. IMPRESSION: No acute process is seen THIS IS AN ELECTRONICALLY VERIFIED FINAL REPORT 02/18/2025 8:28 PM - Electronically signed by Cody Natarajan M.D. KH: JOY Report ID: [id number] Reading Location: [id number] us Jose Tabares DO IMG DIAGNOSTIC ORDERABLES Carmela l Result * CT PELVIS FOR BONE DETAIL WO/ CONTRAST (02/18/2025 7:53 PM CDT) Anatomical Region Laterality Modality Abdomen N/A Computed Tomogra phy 02/18/2025 8:26 PM CDT Narrative 02/18/2025 8:26 PM CDT EXAM DESCRIPTION: CT PELVIS FOR BONE DETAIL WO/ CONTRAST REASON FOR STUDY: Pt presents to ER by EMS with c/o lower back pain. Pt reports pain started today after shoveling gravel all morning. Pt rates pain 10/10. No OTC pain medication taken Denies numbness or tingling to lower ext. Pt also c/o ALVARES. Duration: Today TECHNIQUE: CT scan of the pelvis performed without intravenous and without oral contrast using helical scanning technique. Reconstructed coronal and sagittal MPR images reviewed. All images stored on PACS. Automated exposure control was used as a dose optimization technique for this examination. COMPARISON: None FINDINGS: The sensitivity for detection of solid visceral lesions is diminished without the use of intravenous contrast. URINARY: No visualized abnormality. GI: Not fully included in field of view. No visualized abnormality. PERITONEUM: Not fully included in field of view. No visualized abnormality. RETROPERITONEUM: Not fully included in field of view. No visualized abnormality. REPRODUCTIVE: No significant abnormality. VASCULATURE: Abdominal aorta not fully included in field of view. No visualized abnormality. MUSCULOSKELETAL: Left-sided pars defect of L5 is noted. L5-S1 remains aligned. Chronic deformity of the left iliac wing is noted. This might relate to an old fracture. No acute injury is seen. OTHER: No other abnormality. IMPRESSION: No acute finding. Chronic changes are seen as above. THIS IS AN ELECTRONICALLY VERIFIED FINAL REPORT 02/18/2025 8:26 PM - Electronically signed by Cody Natarajan M.D. KH: JOY Report ID: [id number] Reading Location: [place] [id number] Procedure Note Cody Natarajan MD - 02/18/2025 EXAM DESCRIPTION: CT PELVIS FOR BONE DETAIL WO/ CONTRAST REASON FOR STUDY: Pt presents to ER by EMS with c/o lower back pain. Pt reports pain started today after shoveling gravel all morning. Pt rates pain 10/10. No OTC pain medication taken Denies numbness or tingling to lower ext. Pt also c/o ALVARES. Duration: Today TECHNIQUE: CT scan of the pelvis performed without intravenous and without oral contrast using helical scanning technique. Reconstructed coronal and sagittal MPR images reviewed. All images stored on PACS. Automated exposure control was used as a dose optimization technique for this examination. COMPARISON: None FINDINGS: The sensitivity for detection of solid visceral lesions is diminished without the use of intravenous contrast. URINARY: No visualized abnormality. GI: Not fully included in field of view. No visualized abnormality. PERITONEUM: Not fully included in field of view. No visualized abnormality. RETROPERITONEUM: Not fully included in field of view. No visualized abnormality. REPRODUCTIVE: No significant abnormality. VASCULATURE: Abdominal aorta not fully included in field of view. No visualized abnormality. MUSCULOSKELETAL: Left-sided pars defect of L5 is noted. L5-S1 remains aligned. Chronic deformity of the left iliac wing is noted. This might relate to an old fracture. No acute injury is seen. OTHER: No other abnormality. IMPRESSION: No acute finding. Chronic changes are seen as above. THIS IS AN ELECTRONICALLY VERIFIED FINAL REPORT 02/18/2025 8:26 PM - Electronically signed by Cody HAMILTON: JOY Report ID: [id number] Reading Location: [place] [address] Jose Tabares DO IM CT ORDERABLES Final Result * CT CERVICAL SPINE WO/ CONTRAST (02/18/2025 7:51 PM CDT) Anatomical Region Laterality Modality Spine N/A Computed Tomogra phy 02/18/2025 8:19 PM CDT Narrative 02/18/2025 8:19 PM CDT EXAM DESCRIPTION: CT CERVICAL SPINE WO/ CONTRAST REASON FOR STUDY: Pt presents to ER by EMS with c/o lower back pain. Pt reports pain started today after shoveling gravel all morning. Pt rates pain 10/10. No OTC pain medication taken Denies numbness or tingling to lower ext. Pt also c/o ALVARES. Duration: Today TECHNIQUE: Axial images through the cervical spine with sagittal and coronal reformatted images. Automated exposure control was used as a dose optimization technique for this examination. COMPARISON: None FINDINGS: ALIGNMENT: Normal. VERTEBRAE: No fracture. Vertebral body heights well-maintained. DISCS: Diffuse intervertebral disc narrowing is noted with some mild marginal spurring of the lower cervical spine HARDWARE: None in the spine. INDIVIDUAL DISC LEVELS: No significant osseous spinal canal or neural foraminal stenosis. UPPER THORACIC: Incompletely imaged. No significant osseous spinal stenosis or osseous neural foraminal stenosis. SKULL BASE: No significant finding. LUNG APICES: No significant abnormality. NECK SOFT TISSUES: No significant abnormality. OTHER: No other significant findings. IMPRESSION: No acute osseous abnormality of the cervical spine. Degenerative changes are noted to a mild degree THIS IS AN ELECTRONICALLY VERIFIED FINAL REPORT 02/18/2025 8:19 PM - Electronically signed by Cody HAMILTON: JOY Report ID: [id number] Reading Location: [id number] Procedure Note Cody Natarajan MD - 02/18/2025 EXAM DESCRIPTION: CT CERVICAL SPINE WO/ CONTRAST REASON FOR STUDY: Pt presents to ER by EMS with c/o lower back pain. Pt reports pain started today after shoveling gravel all morning. Pt rates pain 10/10. No OTC pain medication taken Denies numbness or tingling to lower ext. Pt also c/o ALVARES. Duration: Today TECHNIQUE: Axial images through the cervical spine with sagittal and coronal reformatted images. Automated exposure control was used as a dose optimization technique for this examination. COMPARISON: None FINDINGS: ALIGNMENT: Normal. VERTEBRAE: No fracture. Vertebral body heights well-maintained. DISCS: Diffuse intervertebral disc narrowing is noted with some mild marginal spurring of the lower cervical spine HARDWARE: None in the spine. INDIVIDUAL DISC LEVELS: No significant osseous spinal canal or neural foraminal stenosis. UPPER THORACIC: Incompletely imaged. No significant osseous spinal stenosis or osseous neural foraminal stenosis. SKULL BASE: No significant finding. LUNG APICES: No significant abnormality. NECK SOFT TISSUES: No significant abnormality. OTHER: No other significant findings. IMPRESSION: No acute osseous abnormality of the cervical spine. Degenerative changes are noted to a mild degree THIS IS AN ELECTRONICALLY VERIFIED FINAL REPORT 02/18/2025 8:19 PM - Electronically signed by Cody Natarajan M.D. KH: KH Report ID: [id number] Reading Location: [id number] Jose Tabares DO [place] CT ORDERABLES Final Result * CT LUMBAR SPINE WO CONTRAST (02/18/2025 7:44 PM CDT) Anatomical Region Laterality Modality Spine N/A Computed Tomogra phy 02/18/2025 8:02 PM CDT Narrative 02/18/2025 8:02 PM CDT EXAM DESCRIPTION: CT LUMBAR SPINE WO CONTRAST REASON FOR STUDY: Pt presents to ER by EMS with c/o lower back pain. Pt reports pain started today after shoveling gravel all morning. Pt rates pain 10/10. No OTC pain medication taken Denies numbness or tingling to lower ext. Pt also c/o ALVARES. Duration: Today TECHNIQUE: Axial images acquired through the lumbar spine without intravenous contrast. Reconstructed coronal and sagittal MPR images reviewed. All images stored on PACS. Automated exposure control was used as a dose optimization technique for this examination. COMPARISON: None FINDINGS: SEGMENTATION: No transitional anatomy. The lowest well-developed disc space is labeled L5-S1. ALIGNMENT: Normal. VERTEBRAE: No fracture. Vertebral heights well-maintained. DISC HEIGHT: Well-maintained. HARDWARE: None in the spine. INDIVIDUAL DISC LEVELS: No significant osseous spinal canal or neural foraminal stenosis. VISUALIZED RIBS: No fractures. SOFT TISSUES: No significant or acute finding in adjacent soft tissues. OTHER: No other significant finding. IMPRESSION: Normal CT of the lumbar spine. THIS IS AN ELECTRONICALLY VERIFIED FINAL REPORT 02/18/2025 8:02 PM - Electronically signed by Deric Nichole M.D. LL: Report ID: [id number] Reading Location: [place] [id number] Procedure Note Deric Nichole MD - 02/18/2025 EXAM DESCRIPTION: CT LUMBAR SPINE WO CONTRAST REASON FOR STUDY: Pt presents to ER by EMS with c/o lower back pain. Pt reports pain started today after shoveling gravel all morning. Pt rates pain 10/10. No OTC pain medication taken Denies numbness or tingling to lower ext. Pt also c/o ALVARES. Duration: Today TECHNIQUE: Axial images acquired through the lumbar spine without intravenous contrast. Reconstructed coronal and sagittal MPR images reviewed. All images stored on PACS. Automated exposure control was used as a dose optimization technique for this examination. COMPARISON: None FINDINGS: SEGMENTATION: No transitional anatomy. The lowest well-developed disc space is labeled L5-S1. ALIGNMENT: Normal. VERTEBRAE: No fracture. Vertebral heights well-maintained. DISC HEIGHT: Well-maintained. HARDWARE: None in the spine. INDIVIDUAL DISC LEVELS: No significant osseous spinal canal or neural foraminal stenosis. VISUALIZED RIBS: No fractures. SOFT TISSUES: No significant or acute finding in adjacent soft tissues. OTHER: No other significant finding. IMPRESSION: Normal CT of the lumbar spine. THIS IS AN ELECTRONICALLY VERIFIED FINAL REPORT 02/18/2025 8:02 PM - Electronically signed by Deric Nichole M.D. LL: YESIKA Report ID: [id number] Reading Location: [id number] Jose Tabares DO [facility] CT ORDERABLES Final Result * CT HEAD OR BRAIN WO CONTRAST (02/18/2025 7:40 PM CDT) Anatomical Region Laterality Modality Head N/A Computed Tomogra phy 02/18/2025 7:57 PM CDT Narrative 02/18/2025 7:57 PM CDT EXAM DESCRIPTION: CT HEAD OR BRAIN WO CONTRAST REASON FOR STUDY: Pt presents to ER by EMS with c/o lower back pain. Pt reports pain started today after shoveling gravel all morning. Pt rates pain 10/10. No OTC pain medication taken Denies numbness or tingling to lower ext. Pt also c/o ALVARES. Duration: Today TECHNIQUE: Axial images acquired through the brain without intravenous contrast. Images stored on PACS. Automated exposure control was used as a dose optimization technique for this examination. COMPARISON: None FINDINGS: BRAIN: Mild atrophy is present. No hemorrhage, edema or mass effect. No recent infarct. There is a lacunar infarct or prominent perivascular space in the left basal ganglia.. EXTRA-AXIAL SPACES: No fluid collections. No masses. There is a prominent cisterna magna. CALVARIUM: No fracture. SINUSES/MASTOIDS: There is a retention cyst/polyp in the left maxillary sinus. ORBITS: No significant abnormality. OTHER: No other significant abnormality. IMPRESSION: No evidence of acute intracranial pathology. Mild atrophy. Left maxillary sinus disease. THIS IS AN ELECTRONICALLY VERIFIED FINAL REPORT 02/18/2025 7:57 PM - Electronically signed by Deric Nichole M.D. LL: YESIKA Report ID: [id number] Reading Location: [id number] Procedure Note Deric Nichole MD - 02/18/2025 EXAM DESCRIPTION: CT HEAD OR BRAIN WO CONTRAST REASON FOR STUDY: Pt presents to ER by EMS with c/o lower back pain. Pt reports pain started today after shoveling gravel all morning. Pt rates pain 10/10. No OTC pain medication taken Denies numbness or tingling to lower ext. Pt also c/o ALVARES. Duration: Today TECHNIQUE: Axial images acquired through the brain without intravenous contrast. Images stored on PACS. Automated exposure control was used as a dose optimization technique for this examination. COMPARISON: None FINDINGS: BRAIN: Mild atrophy is present. No hemorrhage, edema or mass effect. No recent infarct. There is a lacunar infarct or prominent perivascular space in the left basal ganglia.. EXTRA-AXIAL SPACES: No fluid collections. No masses. There is a prominent cisterna magna. CALVARIUM: No fracture. SINUSES/MASTOIDS: There is a retention cyst/polyp in the left maxillary sinus. ORBITS: No significant abnormality. OTHER: No other significant abnormality. IMPRESSION: No evidence of acute intracranial pathology. Mild atrophy. Left maxillary sinus disease. THIS IS AN ELECTRONICALLY VERIFIED FINAL REPORT 02/18/2025 7:57 PM - Electronically signed by Deric Nichole M.D. LL: YESIKA Report ID: [id number] Reading Location: [id number] Jose Tabares DO IMG CT ORDERABLES Final Result * Red Top Tube (01/27/2025 2:47 PM CRIME LAB TECHNICIAN) Blood No Phlebotomy Charged / Unknown 01/27/2025 2:47 PM CRIME LAB TECHNICIAN 01/27/2025 2:50 PM CRIME LAB TECHNICIAN Anais Steen MD CHEMISTRY ORDERABLES Final R esult [facility] [address] [facility] [place] [address], * Blue Top Tube (01/27/2025 2:47 PM CRIME LAB TECHNICIAN) Blood No Phlebotomy Charged / Unknown 01/27/2025 2:47 PM CRIME LAB TECHNICIAN 01/27/2025 2:50 PM CRIME LAB TECHNICIAN us Anais Steen MD HEMATOLOGY ORDERABLES Final Result [facility] [address] [facility] [place] [address], [place] [phone] * CBC with Auto Differential (01/27/2025 2:47 PM CRIME LAB TECHNICIAN) WBC 6.30 3.88 - 10.35 10(3)/mcL 01/27/2025 2:57 PM [facility] RBC 4.83 3.90 - 5.63 10(6)/mcL 01/27/2025 2:57 PM [facility] HEMOGLOBIN (HGB) 13.6 13.0 - 17.5 g/dL 01/27/2025 2:57 PM [facility] HEMATOCRIT (HCT) 43.0 40.0 - 52.0 % 01/27/2025 2:57 PM [facility] MCV 89.0 82.0 - 100.0 fL 01/27/2025 2:57 PM [facility] MCH 28.2 26.4 - 33.0 pg 01/27/2025 2:57 PM [facility] MCHC 31.6 31.4 - 35.3 g/dL 01/27/2025 2:57 PM [facility] RDW 13.5 11.8 - 15.7 % 01/27/2025 2:57 PM [facility] PLATELET COUNT 325 150 - 450 10(3)/mcL 01/27/2025 2:57 PM [facility] MPV 8.9 8.7 - 12.2 fL 01/27/2025 2:57 PM [facility] NEUTROPHILS 53.0 40.0 - 75.0 % 01/27/2025 2:57 PM [facility] IMMATURE GRANULOCYTE % 0.3 0.0 - 2.0 % 01/27/2025 2:57 PM [facility] LYMPHOCYTES 33.8 20.0 - 40.0 % 01/27/2025 2:57 PM CRIME LAB TECHNICIAN [facility] MONOCYTES 8.7 0.0 - 10.0 % 01/27/2025 2:57 PM [facility] EOSINOPHILS 3.2 0.0 - 4.0 % 01/27/2025 2:57 PM [facility] BASOPHILS 1.0 0.0 - 1.0 % 01/27/2025 2:57 PM [facility] ABSOLUTE NEUTROPHILS 3.34 1.50 - 8.00 10(3)/mcL 01/27/2025 2:57 PM CRIME LAB TECHNICIAN [facility] Blood Venipuncture / Unknown 01/27/2025 2:47 PM CRIME LAB TECHNICIAN 01/27/2025 2:50 PM CRIME LAB TECHNICIAN us Anais Steen MD HEMATOLOGY ORDERABLES Final Result Performing Organization Address City/[facility]/ZIP Co de Phone Number [facility] [address] [place] [address], [place] [phone] * Magnesium (01/27/2025 2:47 PM CRIME LAB TECHNICIAN) MAGNESIUM 2.1 1.6 - 2.3 mg/dL 01/27/2025 3:16 PM [facility] Blood Venipuncture / Unknown 01/27/2025 2:47 PM CRIME LAB TECHNICIAN 01/27/2025 2:50 PM CRIME LAB TECHNICIAN us Anais Steen MD CHEMISTRY ORDERABLES Final R esult [facility] [facility] [address] [place] [address], [place] [phone] * (ABNORMAL) CMP (01/27/2025 2:47 PM CRIME LAB TECHNICIAN) SODIUM 139 137 - 145 mmol/L 01/27/2025 3:16 PM [facility] POTASSIUM 4.4 3.5 - 5.1 mmol/L 01/27/2025 3:16 PM [facility] CHLORIDE 104 98 - 107 mmol/L 01/27/2025 3:16 PM [facility] CO2, VENOUS 31(H) 22 - 30 mmol/L 01/27/2025 3:16 PM [facility] GLUCOSE 106 70 - 106 mg/dL 01/27/2025 3:16 PM [facility] BUN 17 9 - 20 mg/dL 01/27/2025 3:16 PM [facility] CREATININE, BLOOD 0.80 0.66 - 1.25 mg/dL 01/27/2025 3:16 PM [facility] ALKALINE PHOSPHATASE 80 38 - 126 U/L 01/27/2025 3:16 PM [facility] SGPT (ALT) 17 1 - 49 U/L 01/27/2025 3:16 PM [facility] SGOT (AST) 20 17 - 59 U/L 01/27/2025 3:16 PM [facility] ALBUMIN 4.3 3.5 - 5.0 g/dL 01/27/2025 3:16 PM [facility] T BILI 0.5 0.2 - 1.3 mg/dL 01/27/2025 3:16 PM [facility] TOTAL PROTEIN 8.0 6.3 - 8.2 g/dL 01/27/2025 3:16 PM [facility] CALCIUM 9.1 8.4 - 10.2 mg/dL 01/27/2025 3:16 PM [facility] ANION GAP 4.0(L) 6.0 - 16.0 mmol/L 01/27/2025 3:16 PM [facility] BUN/CREATININE RATIO 21 7 - 30 ratio 01/27/2025 3:16 PM [facility] A/G RATIO 1.2 0.9 - 2.3 01/27/2025 3:16 PM [facility] GLOBULIN 3.7 2.2 - 3.9 g/dL 01/27/2025 3:16 PM [facility] GFR, ESTIMATED >60 >60 01/27/2025 3:16 PM [facility] OSMOLALITY 280 273 - 304 mOsm/kg 01/27/2025 3:16 PM [facility] Blood Venipuncture / Unknown 01/27/2025 2:47 PM [facility] TECHNICIAN 01/27/2025 2:50 PM [facility]IME [facility] TECHNICIAN Anais Steen MD CHEMISTRY ORDERABLES Final R esult [facility] [address] [place] [address], [place] [phone] * (ABNORMAL) Urinalysis w/ Reflex (01/27/2025 2:33 PM CR[facility] LAB TECHNICIAN) URINALYSIS COLOR Yellow Yellow, Light Yellow 01/27/2025 2:58 PM CRIME LAB TECHNICIAN [facility] URINALYSIS CLARITY Clear Clear 01/27/2025 2:58 PM CRIME LAB TECHNICIAN [facility] URINE PH 6.0 5.0 - 8.0 01/27/2025 2:58 PM CRIME LAB TECHNICIAN [facility] SPECIFIC GRAVITY >=1.030(H) 1.005 - 1.020 01/27/2025 2:58 PM CRIME LAB TECHNICIAN [facility] PROTEIN, RANDOM URINE Negative Negative 01/27/2025 2:58 PM CRIME LAB TECHNICIAN [facility] URINE GLUCOSE, QUAL Negative Negative 01/27/2025 2:58 PM CRIME LAB TECHNICIAN [facility] URINE KETONES Negative Negative 01/27/2025 2:58 PM CRIME LAB TECHNICIAN [facility] URINE BLOOD Negative Negative mery/ul 01/27/2025 2:58 PM CRIME LAB TECHNICIAN [facility] NITRITE Negative Negative 01/27/2025 2:58 PM CRIME LAB TECHNICIAN [facility] URINE BILIRUBIN Negative Negative 2:58 PM CRIME LAB TECHNICIAN [facility] UROBILINOGEN 0.2 0.2 , 1.0 , Normal mg/dL 01/27/2025 2:58 PM CRIME LAB TECHNICIAN [facility] WBC ESTERASE Negative Negative 01/27/2025 2:58 PM CRIME LAB TECHNICIAN [facility] Urine URINE SPECIMEN / Unknown Non-Phlebotomy Collection / Unknown 01/27/2025 2:33 PM CRIME LAB TECHNICIAN 01/27/2025 2:50 PM CRIME LAB TECHNICIAN Anais Steen MD URINE ORDERABLES Final Resul t [facility] [address] [place] [address], [place] [phone] * (ABNORMAL) Urine Drug Screen (01/27/2025 2:33 PM CRIME LAB TECHNICIAN) UR PHENCYCLIDINE NEGATIVE NEGATIVE 01/28/20 3:00 PM CRIME LAB TECHNICIAN [facility] UR BENZODIAZEPINES NEGATIVE NEGATIVE 2024 3:00 PM CRIME LAB TECHNICIAN [facility] UR COCAINE METABOLITE NEGATIVE NEGATIVE 01/27/2025 3:00 PM CRIME LAB TECHNICIAN [facility] UR AMPHETAMINE POSITIVE(A) NEGATIVE 3:00 PM CRIME LAB TECHNICIAN [facility] UR CANNABINOID NEGATIVE NEGATIVE 01/27/2025 3:00 PM CRIME LAB TECHNICIAN [facility] UR OPIATES NEGATIVE NEGATIVE 01/27/2025 3:00 PM CRIME LAB TECHNICIAN [facility] UR BARBITURATE NEGATIVE NEGATIVE 01/27/2025 3:00 PM CRIME LAB TECHNICIAN [facility] UR TRICYCLIC ANTIDEPRESS SCREEN NEGATIVE NEGATIVE 01/27/2025 3:00 PM CRIME LAB TECHNICIAN [facility] UR ECSTASY POSITIVE(A) NEGATIVE 01/27/2025 3:00 PM CRIME LAB TECHNICIAN [facility] UR OXYCODONE NEGATIVE NEGATIVE 01/27/2025 3:00 PM CRIME LAB TECHNICIAN [facility] UR PROPOXYPHENE NEGATIVE NEGATIVE 3:00 PM [facility] Urine Non-Phlebotomy Collection / Unknown 01/27/2025 2:33 PM CRIME LAB TECHNICIAN 01/27/2025 2:50 PM CRIME LAB TECHNICIAN us Anais Steen MD URINE ORDERABLES Final Resul t Performing Organization Address City/[facility]/ZIP Co de Phone Number [facility] [address] [place] [address], [place] [phone] from Last 3 Months Insurance MEDICAID MOLINA [id number]|2025-04-09 18:50:00|2025-04-09 18:49:00|XMS_ITS|RONDA WYMAN|External Medical Summaries|[id number]|" Clinical Summary Created on: April 09, 2025 Mark Link : 1975 Sex: Male Author Organization [facility] Address [address] [place] [id number] Care Team Providers Care Mortgage Loan Coordinator Name Role Phone None, Provider MD Primary Care Provider Unavaila ble Allergies No known active allergies Medications No known medications Active Problems Problem Noted Date Diagnosed Date Acute encephalopathy 08/30/2023 Closed fracture of left iliac wing ([facility]) 05/13/2020 Immunizations Immunization Administration Dates Next Due Tdap (Generic) 07/06/2010 Family History Medical History Relation Comments No Known Problems Father Dementia Mother Relation Status Comments Father Maternal Grandfather Maternal Grandmother Mother Paternal Grandfather Paternal Grandmother Social History Tobacco Use Types Packs/Day Years Used Date Smoking Tobacco: Every Day Cigarettes Smokeless Tobacco: Never Tobacco Cessation:Ready to Q uit: Not Asked; Counseling Given: Not Answered Comments:PCP to psychologist counseling Alcohol Use Standard Drinks/Week Comments Not Currently 0 (1 standard drink = 0.6 oz pure alcohol) quit approx 1 year ago from today 08/30/2023 Humiliation, Afraid, Rape, and Kick questionnair e Answer Date Recorded Within the last year, have y ou been afraid of your partner or ex-partner? No 08/30/2023 Within the last year, have y ou been humiliated or emotionally abused in other ways by your partner or ex-partner? No Within the last year, have y ou been kicked, hit, slapped, or otherwise physically hurt by your partner or ex-partner? No 08/30/2023 Within the last year, have y ou been raped or forced to have any kind of sexual activity by your partner or ex-partner? No 08/30/2023 AUDIT-C Answer Date Recorded Frequency of Alcohol Consumption Never 09/03/2019 Average Number of Drinks Not on file 019 Frequency of Binge Drinking Not on file 06/2019 Overall Financial Resource Strain (CARDIA) Answe r Date Recorded How hard is it for you to pa y for the very basics like food, housing, medical care, and heating? Not hard at all 08/30/2023 PHQ-2 Answer Date Recorded PHQ-2 Score - If the patient scores above 3, please move on to questions 3-9 0 04/21/2022 Hunger Vital Sign Answer Date Recorded Within the past 12 months, y ou worried that your food would run out before you got the money to buy more. Never true 08/30/20 23 Within the past 12 months, t he food you bought just didn't last and you didn't have money to get more. Never true 08/30/2023 PRAPARE - Transportation Answer Date Re corded In the past 12 months, has l ack of transportation kept you from medical appointments or from getting medications? No 02/2023 In the past 12 months, has l ack of transportation kept you from meetings, work, or from getting things needed for daily living? No 08/30/2023 Housing Stability Vital Sign Answer Alhaji e Recorded In the last 12 months, was t here a time when you were not able to pay the mortgage or rent on time? No 08/30/2023 In the last 12 months, how many places have you lived? 2 08/30/2023 In the last 12 months, was t here a time when you did not have a steady place to sleep or slept in a fpc (including now)? No 08/30/2023 Sex and Gender Information Value Date Recorded Sex Assigned at Male 04/21/2022 2:10 PM CDT Legal Sex Male 8:25 PM CDT Gender Identity Male 04/21/2022 2:10 PM CDT Sexual Orientation Straight 04/21/2022 2: 10 PM CDT Last Filed Vital Signs Vital Sign Reading Time Taken Comments Blood Pressure 140/98 09/01/2023 11:40 AM CDT Pulse 86 09/01/2023 11:40 AM CDT Temperature 36.7 C (98.1 F) 09/01/2023 11:40 AM CDT Respiratory Rate 16 09/01/2023 8:00 AM CDT Oxygen Saturation 100% 09/01/2023 11:40 AM CDT Inhaled Oxygen Concentration - - Weight 73.9 kg (163 lb) 08/30/2023 5:27 PM CDT Height 180.3 cm (5' 11 ) 08/30/2023 5:27 PM CDT Body Mass Index 22.73 08/30/2023 5:27 PM CDT Plan of Treatment Health Maintenance Due Date Last Done Comments Colorectal Cancer Screening Colonoscopy (10 Years) 1975 Annual Physical 1977 Hepatitis B Vaccines (1 of 3 - 19+ 3-dose series) 1993 Pneumococcal Vaccine: 50+ Ye ars (1 of 2 - PCV) 1993 DTaP, Tdap and Td Vaccines ( 2 - Td or Tdap) 07/06/2020 07/06/2010 Zoster Vaccines (1 of 2) 2024 COVID-19 Vaccine (2 - 2023-2 5 season) 2024 12/01/2021 Hepatitis C Completed 09/14/2019 Meningococcal B Vaccine Aged Out No l onger eligible based on patient's age to complete this topic Meningococcal Vaccine Aged Out No inocencia antionette eligible based on patient's age to complete this topic RSV Immunizations Under 20 Months Aged Out No longer eligible based on patient's age to complete this topic Goals Goal Patient Goal Type Associated Problems Recent Progress Patient-Stated? Author Safety - demonstrates understanding of home safety measures Lifestyle No Zaida Porter, RN Safety Patient/family will have appropriate support at home upon discharge Lifestyle Zaida Sepulveda, mash filter cloth changer Procedure Name Priority Date/Time Associated Diagnosis Comments HEPATITIS A,B,& C STAT 09/14/2019 1:3 0 PM CDT from Last 3 Months or Most Recently Relevant to Health Maintenance Results * (ABNORMAL) HEPATITIS A,B,& C (09/14/2019 1:30 PM CDT) HEPATITIS B SURFACE AG NON-REACTI VE NON-REACTI VE 09/15/2019 2:43 PM CDT [facility] HEP B CORE TOTAL AB NON-REACTI VE NON-REACTI VE 09/15/2019 2:43 PM CDT [facility] HEP B SURFACE AB NON-REACTI VE 09/15/2019 2:43 PM CDT [facility] HAV IGM NON-REACTI VE NON-REACTI VE 09/15/2019 2:53 PM CDT [facility] HEPATITIS C AB REACTIVE(A ) NON-REACTI VE 09/15/2019 2:45 PM CDT [facility] Comment: NOTE: A POSITIVE RESULT WILL BE CONFIRMED BY THE HEP C RNA, QUANT, PCR TEST. 09/14/2019 1:30 PM CDT Christel Dickerson MD LABORATORY Final Result [facility] [address] [place] [address], from Last 3 Months or Most Recently Relevant to Health Maintenance Insurance Advance Directives * DNR (Latest Code Status on File) Date Activated Date Inactivated Comments 08/30/2023 5:51 PM 09/01/2023 6:57 PM Care Teams Mortgage Loan Coordinator Relationship Specialty Start Date End Date None, Provider, PCP - General 03/07/22 "
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
--- OUTSIDE RECORDS SUMMARY | 2025-04-09 18:50 | XMS_ITS ---
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 There is no laboratory evidence of HIV infection. HIV Negative CBC With Differential/Platel et* (Not yet reviewed by provider) Interpretation: Performing Lab:[facility] [place], [address] [facility] Phone - [phone], Director - [facility] Notes/Report: WBC 7.5 3.4-10.8 x10E3/uL RBC 4.67 [...] % Immature Grans (Abs) 0.0 0.0-0.1 x10E3/uL CMP 14 Comprehensive Metabol ic Panel* (Not yet reviewed by provider) Interpretation: Performing Lab:[facility] [place], [address] [facility], [place], Phone - [phone], Director - [facility] Notes/Report: Glucose 105 70-99 mg/dL BUN 15 [...] 0-40 IU/L ALT (SGPT) 11 0-44 IU/L REASON FOR VISIT labs Social History Sex Assigned At : Social History Observation Description Sex Assigned At Male Encounters Encounter Location Date Provider Diagnosis [place] [address] [place] [address] 04/03/2025 Tracy Barksdale Adult general medical exam Z00.00 Assessments Encounter Date Diagnosis (ICD Code) Assessment Notes Treatment Notes Treatment Clinical Notes Section Notes 04/03/2025 Adult general medical exam (ICD-10 - Z00.00) Plan Of Treatment Pending Test Test Name Order Date HIV Screen *HIV 1, 2 Ab, p24 Ag ([id number]) 04/03/2025 CBC With Differential/Platelet* 04/03/20 25 CMP 14 Comprehensive Metabolic Panel* Future Test Test Name Order Date Glucose Fingerstick 04/03/2025 Next Appt Details Provider Name:Tracy Bonilla Adiel lata, 04/16/2025 08:00:00 AM, [address], [place], [address], Progress Notes * Mark AMADOR ADOB: 4 (50 yo M)Acc No.[id number]:04/03/2025 UNLOCKED PROGRESS NOTE Patient: Makr HOANG Provider: Frederick Barksdale, MSN, FLITCH HANGER, UNDERWRITER SOLICITATION DIRECTOR-BC, UNDERWRITER SOLICITATION DIRECTOR-C :1975 A ge:50 Y S ex:Male Date:04/03/2025 Address:[address] [place], [place] [id number] Pcp:Fallon Topete Short Check In:09:14 AM 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 Labs. * Medical History: Objective: * Vitals: Assessment: * Assessment: 1. A dult general medical exam - Z00.00 Plan: * Treatment: * * Electronic signature of Yoni Barksdale APRN, [id number] on 04/09/2025 at 06:49 PM CDT Sign off status: Pending * Provider: Frederick Barksdale, MSN, FLITCH HANGER, UNDERWRITER SOLICITATION DIRECTOR-BC, UNDERWRITER SOLICITATION DIRECTOR-C Date: 0 04/03/2025 Generated for Printing/Faxing/eTransmitting on: 0 04/09/2025 06:49 PM CDT
[2025-04-09 18:58] LABS: INR 0.8; Prothrombin Time 11.8 Seconds (11.1-14.7)
[2025-04-09 18:59] LABS: Partial Thromboplastin Time 23.8 Seconds (22.3-36.8)
[2025-04-09 19:02] LABS: Troponin I < 0.012 ng/mL (0.000-0.034)
[2025-04-09 19:18] LABS: D Dimer 0.42 ug/mL (<0.48)
[2025-04-09] MEDS: IPRATROPIUM 0.5 MG/ALBUTEROL SULFATE 2.5 MG AMPUL.NEB 3 ML INHALATION (19:30)
[2025-04-09 21:54] LABS: Troponin I < 0.012 ng/mL (0.000-0.034)
== END 2025-04-09 22:28 | disposition home or self-care (01) ==
PROVIDERS: Emergency Medicine; Emergency Provider Physician Assistant
DX: R07.89 Other chest pain (principal)
CPT/HCPCS: 36415; 71046; 80053; 83690; 84484; 85025; 85380; 85610; 85730; 93005; 94640; 99284